=== PATIENT | male | born 2000 | race Caucasian/White ===

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

== ENCOUNTER 2023-04-14 06:52 | Emergency (ER) | payer MEDICAID ==
[~2023-04-14] VITALS: Ht 182 cm; Wt 72.5 kg
[~2023-04-14 06:52] MED LIST changes: -CATHETER FLUSH 10 ML SYR IV PRN; -HOLD METFORMIN - RECEIVED CONTRAST 20 ML VIAL IV SCH; -IOHEXOL 350 MG/ML 100 ML (OMNIPAQUE 350) VIAL IV ONE; -NS 100 ML (IVPB) BAG IV ONE
[2023-04-14] MEDS ORDERED: NS IV 1000 ML 1,000 ML ONE (07:48)
[2023-04-14] MEDS ORDERED: PROMETHAZINE INJ 25 MG/ML VIAL ONE (07:48)
[2023-04-14] MEDS ORDERED: SCOPOLAMINE 1.5 MG PATCH ONE (07:48)
--- NOTE | 2023-04-14 07:49 | ED Abdominal Pain ---
General Chief Complaint: Abdominal/GI Problems Stated Complaint: VOMITING,FEVER Nursing Triage Note: pt presents to ed with complaints of waking up early this am with nausea and generalized abdominal pain. pt reports vomiting numerous times and at this point is mainly bile. pt also reports hot/cold sweats. pt mother reports pt has had similar episodes in the past of uncontrolled nausea. Source of Information: Patient, Caregiver Exam Limitations: No Limitations ([address]) History of Present Illness Date Seen by Provider: Apr 14, 2023 Time Seen by Provider: 07:44 Initial Comments Patient presents today with nausea and vomiting, hot and cold sweats since 3 am this morning. He has had over 10 vomiting episodes this morning. His mother states that he has episodes of uncontrolled vomiting before. He has tried Tums and Zofran already this morning but have not helped with his symptoms. He is having some abdominal pain but thinks it is from wretching so often. He does admit to smoking marijuana and said that he smoked a couple hours ago as well. He does not give a pain rating, just says that his stomach hurts. He has an associated headache earlier today as well. He denies any diarrhea or constipation, syncope, or pulmonary symptoms. Timing/Duration: 4-6 Hours Severity/Quality: Moderate Location: Generalized Abdomen Radiation: No Radiation Activities at Onset: Sleeping Associated Symptoms: No Chest Pain; Diaphoresis, Fever/Chills, Headache, Nausea/Vomiting; No Shortness of Air, No Syncope ([address]) Allergies and Home Medications Allergies Coded Allergies: No Known Drug Allergies (Unverified , 08/05/11) Patient Home Medication List Home Medication List Reviewed: Yes ([address]) Amoxicillin (Amoxicillin) 875 Mg Tablet, 875 MG PO BID, (Reported) Entered as Reported by: MARIANNA VAUGHAN on 04/08/19 09 Ondansetron (Ondansetron Odt) 4 Mg Tab.rapdis, 4 MG SL Q4H PRN for NAUSEA/VOMITING Prescribed by: YUE GUEVARA on 04/14/23 09 Promethazine HCl (Promethazine HCl) 12.5 Mg Tablet, 12.5 MG PO Q6H PRN for NAUSEA-2ND LINE Prescribed by: YUE GUEVARA on 04/14/23 09 Review of Systems Review of Systems Constitutional: chills; No dizziness, No fever Respiratory: Denies Cough, Denies Shortness of Air Cardiovascular: Denies Chest Pain, Denies Irregular Heart Rate, Denies Syncope Gastrointestinal: Abdominal Pain; Denies Constipated, Denies Diarrhea; Nausea, Vomiting Musculoskeletal: no symptoms reported ([address]) Past Ieuxzdf-[id number]-Ezxydu Hx Patient Social History Tobacco Use?: No Use of E-Cig and/or Vaping dev: Yes E-Cig or Vaping type used: Nicotine Use of E-Cig and/or Vaping Jayce: Current Everyday User Substance use?: Yes Substance type: Marijuana Substance frequency: Daily Alcohol Use?: No Pt feels they are or have been: No ([address]) Immunizations Up To Date Tetanus Booster (TDap): Unknown PED Vaccines UTD: Yes ([address]) Seasonal Allergies Seasonal Allergies: No ([address]) Past Medical History Surgery/Hospitalization HX: [email or web address] jang Surgeries: No Respiratory: No Cardiac: No Syncope Neurological: No Genitourinary: No Gastrointestinal: No Musculoskeletal: No Endocrine: No HEENT: No Cancer: No Psychosocial: No Integumentary: No Blood Disorders: No ([address]) Family Medical History Hypertension ([address]) Physical Exam Vital Signs Vital Signs - First Documented 04/14/23 07:25 Temp 36.4 Pulse 62 Resp 18 B/P (MAP) 132/84 (100) Pulse Ox 100 (YUE BOWIE MD) Vital Signs Capillary Refill : Less Than 3 Seconds ([address]) Height/Weight/BMI Height: '" Weight: lbs. oz. kg; 21.00 BMI Method:Stated General Appearance: WD/WN, no apparent distress Respiratory: lungs clear, normal breath sounds, no respiratory distress, no accessory muscle use Cardiovascular: regular rate, rhythm, no gallop, no murmur Gastrointestinal: non tender, soft, abnormal bowel sounds (hyperactive bowel sounds) Neurologic/Psychiatric: alert, normal mood/affect, oriented x 3 ([address]) Progress/Results/Core Measures Results/Orders Lab Results Laboratory Tests Test 04/14/23 07:15 Range/Units White Blood Count 9.3 4.3-11.0 10^3/uL Red Blood Count 5.26 4.30-5.52 10^6/uL Hemoglobin 16.1 13.3-17.7 g/dL Hematocrit 46 40-54 % Mean Corpuscular Volume 88 80-99 fL Mean Corpuscular Hemoglobin 31 25-34 pg Mean Corpuscular Hemoglobin Concent 35 32-36 g/dL Red Cell Distribution Width 11.6 10.0-14.5 % Platelet Count 299 130-400 10^3/uL Mean Platelet Volume 9.4 9.0-12.2 fL Immature Granulocyte % (Auto) 1 % Neutrophils (%) (Auto) 81 H 42-75 % Lymphocytes (%) (Auto) 13 12-44 % Monocytes (%) (Auto) 6 0-12 % Eosinophils (%) (Auto) 0 0-10 % Basophils (%) (Auto) 0 0-10 % Neutrophils # (Auto) 7.5 1.8-7.8 10^3/uL Lymphocytes # (Auto) 1.2 1.0-4.0 10^3/uL Monocytes # (Auto) 0.5 0.0-1.0 10^3/uL Eosinophils # (Auto) 0.0 0.0-0.3 10^3/uL Basophils # (Auto) 0.0 0.0-0.1 10^3/uL Immature Granulocyte # (Auto) 0.1 0.0-0.1 10^3/uL Sodium Level 140 135-145 MMOL/L Potassium Level 3.7 3.6-5.0 MMOL/L Chloride Level 107 98-107 MMOL/L Carbon Dioxide Level 20 L 21-32 MMOL/L Anion Gap 13 5-14 MMOL/L Blood Urea Nitrogen 14 7-18 MG/DL Creatinine 0.92 0.60-1.30 MG/DL Estimat Glomerular Filtration Rate 121 BUN/Creatinine Ratio 15 Glucose Level 152 H 70-105 MG/DL Calcium Level 9.9 8.5-10.1 MG/DL Corrected Calcium 8.5-10.1 MG/DL Total Bilirubin 1.4 H 0.1-1.0 MG/DL Aspartate Amino Transf (AST/SGOT) 21 5-34 U/L Alanine Aminotransferase (ALT/SGPT) 14 0-55 U/L Alkaline Phosphatase 43 40-136 U/L Total Protein 7.4 6.4-8.2 GM/DL Albumin 4.7 H 3.2-4.5 GM/DL Lipase 14 8-78 U/L (YUE BOWIE MD) My Orders Orders - YUE BOWIE MD Cbc And Automated Diff (04/14/23 07:50) Comprehensive Metabolic Panel (04/14/23 07:50) Lipase (04/14/23 07:50) Promethazine Injection (Promethazine I (04/14/23 08:00) Scopolamine Patch (Scopolamine Patch) (04/14/23 08:00) Ed Iv/Invasive Line Start (04/14/23 07:50) Ns Iv 1000 Ml (Ns Iv 1000 Ml) (04/14/23 08:00) Scopolamine Patch (Scopolamine Patch) (04/14/23 07:48) Promethazine Injection (Promethazine I (04/14/23 07:48) Ns Iv 1000 Ml (Ns Iv 1000 Ml) (04/14/23 07:48) (YUE BOWIE MD) Medications Given in ED (YUE BOWIE MD) Vital Signs/I&O 04/14/23 04/14/23 07:25 09:19 Temp 36.4 Pulse 62 70 Resp 18 22 B/P (MAP) 132/84 (100) 123/69 Pulse Ox 100 100 (YUE BOWIE MD) Blood Pressure Mean: 100 Progress Progress Note : Time: 07:51 Progress Note Patient is currently going through signs of cyclical vomiting. He has not had vomiting of food substances, mostly just stomach acid at this time. His symptoms started at 3 am this morning. He has vomited over 10 times since this morning. He has an everyday use of marijuana and admits to smoking marijuana earlier this morning. He has had episodes of vomiting like this before. He has already tried Zofran as well as tums and did not help his nausea or vomiting at this time. He has moderate abdominal pain with hyperactive bowel sounds. Plan is to give NS, scopalamine patch and fenergine at this time to help with nausea symptoms. ([address]) Departure Impression Primary Impression: Nausea and vomiting Qualified Codes: R11.2 - Nausea with vomiting, unspecified Additional Impression: Marijuana use Disposition: 01 HOME, SELF-CARE Condition: Improved Departure-Patient Inst. Decision time for Depature: 09:00 (YUE BOWIE MD) Referrals: NO,LOCAL PHYSICIAN (PCP/Family) Primary Care Physician Patient Instructions: Nausea and Vomiting, Adult ED Add. Discharge Instructions: To treat nausea and vomiting you may leave your scopolamine patch on for up to 3 days. Please note this patch may cause dry mouth or blurry vision. If these symptoms occur and are not tolerable, simply remove the patch and wash your skin with soap and water. Wash your hands with soap and water if you touch the patch. Use Zofran (ondansetron) as primary control for nausea and vomiting. Add the Phenergan only if Zofran does not adequately control nausea and vomiting. Please be advised Phenergan (promethazine) may cause significant drowsiness. Do not drive, operate machinery, or make important decisions after taking Phenergan. Please be advised that marijuana use and other THC products may cause severe problems with nausea and vomiting. The nausea and vomiting affect may be delayed, even occurring weeks after your last use. You are advised to discontinue any use of marijuana or THC products. Return to the emergency room if you have any worsening of condition. All discharge instructions reviewed with patient and/or family. Voiced understanding. Scripts Promethazine HCl (Promethazine HCl) 12.5 Mg Tablet 12.5 MG PO Q6H PRN for NAUSEA-2ND LINE, #10 TAB Prov: YUE BOWIE MD 04/14/23 Ondansetron (Ondansetron Odt) 4 Mg Tab.rapdis 4 MG SL Q4H PRN for NAUSEA/VOMITING, #10 TAB Prov: YUE BOWIE MD 04/14/23 Medical Student Attestation and Attending Note: I have personally interviewed and examined this patient along with Dirk Lnae. I have reviewed student documentation including history, physical, and assessments. I agree with the documentation except where otherwise noted. Dirk initially interviewed and examined the patient in my stead while I attended to a critical trauma transfer. Orders were placed based on his report. Patient was examined after treatment and was ready for discharge. Discharge instructions were reviewed with patient and search engine marketing manager. Exam: General: Alert, oriented, no acute distress, well developed, somnolent HEENT: Normocephalic and atraumatic Heart: Regular rate and rhythm without murmur Lungs: Clear to auscultation bilaterally with normal effort Abdomen: Soft, nontender, nondistended, normal bowel sounds Neuropsych: Alert, oriented, no focal deficits Skin: Warm and dry without rashes (YUE BOWIE MD) [address] Apr 14, 2023 07:49 YUE BOWIE MD Apr 14, 2023 09:03
[2023-04-14 07:58] LABS: BASOPHILS % (AUTO) 0 % (0-10); EOSINOPHILS % (AUTO) 0 % (0-10); HEMATOCRIT 46 % (40-54); HEMOGLOBIN 16.1 g/dL (13.3-17.7); LYMPHOCYTES # (AUTO) 1.2 10^3/uL (1.0-4.0); LYMPHOCYTES % (AUTO) 13 % (12-44); MEAN CORPUSCULAR HEMOGLOBIN 31 pg (25-34); MEAN CORPUSCULAR HGB CONC 35 g/dL (32-36); MEAN CORPUSCULAR VOLUME 88 fL (80-99); MEAN PLATELET VOLUME 9.4 fL (9.0-12.2); MONOCYTES # (AUTO) 0.5 10^3/uL (0.0-1.0); MONOCYTES % (AUTO) 6 % (0-12); NEUTROPHILS # (AUTO) 7.5 10^3/uL (1.8-7.8); NEUTROPHILS % (AUTO) 81 % (42-75); PLATELET COUNT 299 10^3/uL (130-400); WHITE BLOOD COUNT 9.3 10^3/uL (4.3-11.0)
[2023-04-14] MEDS ORDERED: NS IV 1000 ML 1,000 ML IV SCH (08:00)
[2023-04-14] MEDS ORDERED: SCOPOLAMINE 1.5 MG PATCH TD ONE (08:00)
[2023-04-14] MEDS ORDERED: PROMETHAZINE INJ 25 MG/ML VIAL IVP ONE (08:00)
[2023-04-14 08:01] LABS: ALBUMIN 4.7 GM/DL (3.2-4.5); CHLORIDE 107 MMOL/L (98-107)
[2023-04-14 08:02] LABS: POTASSIUM 3.7 MMOL/L (3.6-5.0); SODIUM 140 MMOL/L (135-145)
[2023-04-14 08:03] LABS: CALCIUM 9.9 MG/DL (8.5-10.1)
[2023-04-14 08:04] LABS: GLUCOSE 152 MG/DL (70-105); TOTAL PROTEIN 7.4 GM/DL (6.4-8.2)
[2023-04-14 08:05] LABS: CARBON DIOXIDE 20 MMOL/L (21-32)
[2023-04-14 08:06] LABS: BILIRUBIN,TOTAL 1.4 MG/DL (0.1-1.0)
[2023-04-14 08:07] LABS: ALKALINE PHOSPHATASE 43 U/L (40-136); CREATININE SERUM 0.92 MG/DL (0.60-1.30); GFR ESTIMATED 121
[2023-04-14 08:08] LABS: BUN/CREATININE RATIO 15
[2023-04-14 08:10] LABS: ALANINE AMINOTRANSFERASE 14 U/L (0-55)
[2023-04-14 08:11] LABS: LIPASE 14 U/L (8-78)
[2023-04-14] MEDS ORDERED: ONDA4TAB11 SL (09:03)
[2023-04-14] MEDS ORDERED: PROM12.511 PO (09:03)
[2023-04-14 09:19] VITALS: BP 123/69
== END 2023-04-14 09:19 | disposition home or self-care (01) ==
LOC: EDUNIT# 06:52 → ER 06:59
DX: R11.2 Nausea with vomiting, unspecified (principal); F12.90 Cannabis use, unspecified, uncomplicated; R10.84 Generalized abdominal pain; F17.290 Nicotine dependence, other tobacco product, uncomplicated
CPT/HCPCS: 36415; 80053; 83690; 85025; 96361; 96374